=== PATIENT | female | born 1960 | race Caucasian/White ===

== ENCOUNTER → 2016-12-07 | Outpatient (CLI) | payer OTHER ==
--- NOTE | 2016-12-07 13:55 | REP ---
BILATERAL MAMMOGRAM: Bilateral mammography performed in the MLO and CC projections. Comparison made with a prior study 12/05/2012. Scattered fibroglandular tissue is again noted with nodular opacity seen laterally on the right CC view, possibly superiorly on the right MLO view. Recommend spot compression views and ultrasound to further evaluate. Otherwise, no other mass or clustered microcalcifications are seen bilaterally. IMPRESSION: Possible nodule, upper outer quadrant right breast. Recommend spot compression views and ultrasound to further evaluate. ACR 0 incomplete. BI-RADS/ACR category 0 mammogram, incomplete. Additional imaging and/or prior images are needed before a final assessment can be assigned. This mammogram was interpreted with the aid of an FDA-approved computer-aided detection system. A. Negative x-ray reports should not delay biopsy if a dominant or clinically suspicious mass is present. B. Four to eight percent of cancers are not identified by x-ray. C. Adenosis and dense breasts may obscure an underlying neoplasm. The patient states that she/he has not had a clinical breast exam in over a year. The patient letter being requested is M0. Signed by Manoj Wagner MD 12/07/2016 05:04 P
== END ==
LOC: M RAD 10:50
PROVIDERS: ATTEND Nurse Practitioner Family
DX: Z12.31 Encounter for screening mammogram for malignant neoplasm of breast (principal); R92.8 Other abnormal and inconclusive findings on diagnostic imaging of breast

== ENCOUNTER → 2016-12-13 | Outpatient (CLI) | payer OTHER ==
--- NOTE | 2016-12-13 17:59 | REP ---
DIAGNOSTIC MAMMOGRAM RIGHT BREAST WITH RIGHT BREAST ULTRASOUND: Diagnostic mammogram right breast performed with spot compression views obtained. These spot compression views confirm the presence of a nodule in the upper outer quadrant of the right breast which measures approximately 11 mm in maximum diameter. The nodule is best seen on the CC views. The minority of the borders are well defined. The majority of the borders are ill defined. Real-time sonographic evaluation of the upper outer quadrant of the right breast demonstrates a cyst measuring 1.3 x 0.6 x 1.0 cm. IMPRESSION: ACR 2 benign. The nodule in the upper outer quadrant of the right breast corresponds to a cyst by ultrasound and is benign. Recommend followup mammogram in one year. BI-RADS/ACR category 2 mammogram. Benign finding(s). Routine annual screening mammography (for women over age 40). This mammogram was interpreted with the aid of an FDA-approved computer-aided detection system. The patient letter being requested is M1 Signed by Manoj Wagner MD 12/14/2016 05:06 P
== END ==
LOC: M RAD 14:17
PROVIDERS: ATTEND Nurse Practitioner Family
DX: R92.8 Other abnormal and inconclusive findings on diagnostic imaging of breast (principal); N60.01 Solitary cyst of right breast
CPT/HCPCS: 76642; G0206

== ENCOUNTER → 2020-06-10 | Outpatient (REF) | payer BC, OTHER | LOC: M LAB REF 15:54 | PROVIDERS: ATTEND Radiology Diagnostic Radiology | DX: N63.10 Unspecified lump in the right breast, unspecified quadrant (principal) ==

== ENCOUNTER → 2022-05-27 | Outpatient (CLI) | payer BC | LOC: M WHC 16:16 | PROVIDERS: ATTEND Emergency Medicine | DX: Z12.31 Encounter for screening mammogram for malignant neoplasm of breast (principal) ==

== ENCOUNTER → 2024-02-09 | Outpatient (CLI) | payer BC | LOC: M WHC 10:10 | PROVIDERS: ATTEND Emergency Medicine | DX: Z12.31 Encounter for screening mammogram for malignant neoplasm of breast (principal); R92.333 Mammographic heterogeneous density, bilateral breasts ==